=== PATIENT | male | born 1995 | race Caucasian/White ===

== ENCOUNTER 2022-11-19 11:08 | Emergency (ER) | payer BC, OTHER ==
[~2022-11-19] VITALS: Ht 182.9 cm; Wt 81.2 kg
[2022-11-19 11:43] VITALS: BP_SYST 133
[2022-11-19 12:25] LABS: BASOPHILS % (AUTO) 1.1 % (0.0-2.0); EOSINOPHILS # (AUTO) 0.2 K/uL (0.0-0.4); EOSINOPHILS % (AUTO) 5.9 % (0.0-4.0); HEMATOCRIT 46.1 % (36-54); HEMOGLOBIN 15.8 g/dL (14.0-18.0); LYMPHOCYTES # (AUTO) 1.1 K/uL (1.0-5.5); LYMPHOCYTES % (AUTO) 29.8 % (20.5-51.5); MEAN CORPUSCULAR HEMOGLOBIN 30 pg (27-31); MEAN CORPUSCULAR HGB CONC 34 % (32-36); MEAN CORPUSCULAR VOLUME 89 fL (79.0-98.0); MONOCYTES # (AUTO) 0.3 K/uL (0.0-1.0); MONOCYTES % (AUTO) 9.4 % (1.7-9.3); NEUTROPHILS % (AUTO) 53.8 % (40.0-70.0); PLATELET COUNT (AUTO) 185 K/uL (130-430); RED BLOOD CELL COUNT(AUTO) 5.19 MIL/uL (4.2-6.2); RED CELL DISTRIBUTION WIDTH 13.1 % (9.0-15.0); WHITE BLOOD COUNT (AUTO) 3.6 K/uL (4.8-10.8)
[2022-11-19 12:30] LABS: ANION GAP 8 (5-15); CALCIUM 8.1 mg/dL (8.4-11.0); CHLORIDE 106 mmol/L (98-107); CREATININE 0.84 mg/dL (0.55-1.30); GFR AFRICAN AMERICAN 141 mL/min (>90); GLUCOSE 101 mg/dL (70-99); UREA NITROGEN, BLOOD 13 mg/dL (8-21)
[2022-11-19 12:34] LABS: ALANINE AMINOTRANSFERASE 31 U/L (12-78); ALBUMIN 3.8 g/dL (3.4-4.8); ASPARTATE AMINOTRANSFERASE 22 U/L (10-37); TOTAL BILIRUBIN 0.5 mg/dL (0.0-1.0)
[2022-11-19 12:35] LABS: C-REACTIVE PROTEIN QUANT < 0.2 mg/dL (0-0.5)
[2022-11-19 14:18] LABS: BILIRUBIN,URINE NEGATIVE (NEGATIVE); BLOOD, URINE NEGATIVE (NEGATIVE); CLARITY/URINE CLEAR (CLEAR); COLOR,URINE YELLOW (YELLOW); GLUCOSE,URINE NEGATIVE (NEGATIVE); KETONES,URINE NEGATIVE (NEGATIVE); LEUKOCYTE ESTERASE ,URINE NEGATIVE (NEGATIVE); NITRITE, URINE NEGATIVE (NEGATIVE); PH,URINE 7.5 (5.0-8.0); PROTEIN URINE NEGATIVE (NEGATIVE); UROBILINOGEN,URINE 0.2 (0.2-1.0)
[2022-11-19 16:30] VITALS: BP_SYST 133
== END 2022-11-19 16:30 | disposition home or self-care (01) ==
LOC: SED 11:08
DX: N45.2 Orchitis (principal)
CPT/HCPCS: 36415; 76870-TC; 80053; 81003; 85025; 86140; 99284

== ENCOUNTER 2023-01-24 05:24 | Emergency (ER) | payer BC ==
[~2023-01-24] VITALS: Ht 182.9 cm; Wt 81.6 kg
[2023-01-24 05:45] VITALS: BP_SYST 137; PULSE 82; RESP 20; TEMP 98.6; O2SAT 98
--- NOTE | 2023-01-24 06:10 | NUR ---
Dr. Angela with patient in triage for MSE.
[2023-01-24] MEDS ORDERED: ceFAZolin SODIUM 1 GM VIAL IM ONE (06:15)
--- NOTE | 2023-01-24 06:17 | NUR ---
Patient triaged and placed in waiting room. VSS and patient appears in no acute distress at this time. Accompanied by SELF, awaiting available bed, and MD notified of need for MSE.
[2023-01-24] MEDS ORDERED: CEPH-548 PO (06:23)
--- NOTE | 2023-01-24 06:26 | NUR ---
Patient given written and verbal discharge instructions and verbalizes understanding. ER MD discussed with patient the results and treatment provided. Patient in stable condition. ID arm band removed. Rx of KEFLEX given. Patient educated on pain management and to follow up with PMD. Pain Scale 0/10. Opportunity for questions provided and answered. Medication side effect fact sheet provided.
[2023-01-24 06:35] VITALS: BP_SYST 122; PULSE 88; RESP 18; TEMP 97.9; O2SAT 96
== END 2023-01-24 06:26 | disposition home or self-care (01) ==
LOC: SED 05:24
DX: L03.114 Cellulitis of left upper limb (principal); Z79.899 Other long term (current) drug therapy
CPT/HCPCS: 99283; 96372; J0690

== ENCOUNTER 2023-02-07 14:15 | Emergency (ER) | payer OTHER, BC ==
[~2023-02-07] VITALS: Ht 185.4 cm; Wt 81.2 kg
[~2023-02-07 14:15] MED LIST: CEPH-548 PO
[2023-02-07 14:26] VITALS: BP_SYST 136; PULSE 64; RESP 18; TEMP 98.3; O2SAT 96
[2023-02-07] MEDS ORDERED: KETOROLAC TROMETHAMINE 60 MG/2 ML VIAL IM ONE (14:30)
[2023-02-07] MEDS ORDERED: IBUP-1971 PO (14:57)
[2023-02-07 15:10] VITALS: BP_SYST 128; PULSE 60; RESP 18; TEMP 98.3; O2SAT 98
== END 2023-02-07 15:11 | disposition home or self-care (01) ==
LOC: SED 14:15
DX: S70.01XA Contusion of right hip, initial encounter (principal); F12.90 Cannabis use, unspecified, uncomplicated; Z79.899 Other long term (current) drug therapy; V49.50XA Passenger injured in collision with unspecified motor vehicles in traffic accident, initial encounter; Y93.89 Activity, other specified; Y92.89 Other specified places as the place of occurrence of the external cause; Y99.8 Other external cause status
CPT/HCPCS: 99283; 96372; J1885